=== PATIENT | male | born 1960 | race American Indian/Alaskan Native ===

== ENCOUNTER 2018-08-03 15:48 | Emergency (ER) | payer MEDICAID ==
[2018-08-03 15:54] VITALS: BP 124/86; PULSE 71; RESP 18; TEMP 98.3; O2SAT 99
--- NOTE | 2018-08-03 16:29 | C.PDOC ---
History Of Present Illness 58 y/o male presents to the ED complaining of left neck pain and left shoulder pain since yesterday. Patient states he lifted a heavy chair and developed pain shortly after. He denies any fall or blunt trauma, chest pain, SOB, numbness, tingling, or weakness in the arm. Patient did not take any pain medication prior to arrival. Time Seen by Provider: 08/03/18 15:58 Chief Complaint (Nursing): Upper Extremity Problem/Injury History Per: Patient History/Exam Limitations: no limitations Onset/Duration Of Symptoms: Days (2) Current Symptoms Are (Timing): Still Present Exacerbating Factor(s): Movement Past Medical History Reviewed: Historical Data, Nursing Documentation, Vital Signs Vital Signs: Last Vital Signs Temp 98.3 F 08/03/18 15:51 Pulse 71 08/03/18 15:51 Resp 18 08/03/18 15:51 BP 124/86 08/03/18 15:51 Pulse Ox 99 08/03/18 15:51 - Medical History PMH: Arthritis, Asthma Family History: States: Unknown Family Hx - Social History Hx Alcohol Use: No Hx Substance Use: No - Immunization History Hx Tetanus Toxoid Vaccination: No Hx Influenza Vaccination: Yes Hx Pneumococcal Vaccination: No Review Of Systems Constitutional: Negative for: Fever Cardiovascular: Negative for: Chest Pain, Palpitations Respiratory: Negative for: Cough, Shortness of Breath Musculoskeletal: Positive for: Neck Pain (left-sided), Shoulder Pain (left) Skin: Negative for: Rash, Lesions Neurological: Negative for: Weakness, Numbness, Incoordination Physical Exam - Physical Exam Appears: Non-toxic, No Acute Distress Skin: Warm, Dry Head: Atraumatic, Normacephalic Eye(s): bilateral: Normal Inspection Oral Mucosa: Moist Neck: Paracervical Tenderness (left-sided paracervical and trapezius tenderness, with (+) muscle spasm), Supple Chest: Symmetrical Respiratory: No Accessory Muscle Use, Other (NARD) Extremity: Normal ROM (w/ full ROM of left shoulder and arm, three knife trimmer strength 5/5 bilaterally), No Tenderness (to the upper arm or elbow), Capillary Refill (< 2 sec), No Deformity, No Swelling Pulses: Left Radial: Normal, Right Radial: Normal Neurological/Psych: Oriented x3, Normal Motor, Normal Sensation (Distal sensation intact to LUE) Gait: Steady ED Course And Treatment O2 Sat by Pulse Oximetry: 99 (RA) Pulse Ox Interpretation: Normal Medical Decision Making Medical Decision Making: Impression: Left trapezius/paracervical spasm Plan: Patient given 60 mg IM Toradol in the ED. Patient is resting comfortably in chair. Will d/c home with prescriptions for PO Flexeril and Toradol. Disposition Counseled Patient/Family Regarding: Diagnosis, Need For Followup - Disposition Referrals: [facility] [Outside] [facility] [Outside] Disposition: HOME/ ROUTINE Disposition Time: 16:28 Condition: IMPROVED Additional Instructions: MIKE DESOUZA, thank you for letting us take care of you today. Your provider was Jenniffer Guadalupe MD and you were treated for LT SHOULDER/NECK PAIN. The emergency medical care you received today was directed at your acute symptoms. If you were prescribed any medication, please fill it and take as directed. It may take several days for your symptoms to resolve. Return to the Emergency Department if your symptoms worsen, do not improve, or if you have any other problems. Please contact your doctor or call one of the physicians/clinics you have been referred to that are listed on the Patient Visit Information form that is included in your discharge packet. Bring any paperwork you were given at discharge with you along with any medications you are taking to your follow up visit. Our treatment cannot replace ongoing medical care by a primary care pr ovider outside of the emergency department. Thank you for allowing the [facility] team to be part of your care today. Prescriptions: Cyclobenzaprine [Cyclobenzaprine HCl] 10 mg PO TID PRN #20 tab PRN Reason: Muscle Spasm Ketorolac Tromethamine [Toradol] 10 mg PO Q6H PRN #20 tab PRN Reason: Pain, Moderate (4-7) Instructions: Muscle Strain (DC), Muscle Spasms (DC) Forms: [employer] (Georgian), General Discharge Instructions - POA Present On Arrival: None - Clinical Impression Clinical Impression: Muscle spasm of left shoulder, Strain of left trapezius muscle - Scribe Statement The provider has reviewed the documentation as recorded by the Mercedes Robledo Provider Attestation: All medical record entries made by the Michelleibfarhad were at my direction and personally dictated by me. I have reviewed the chart and agree that the record accurately reflects my personal performance of the history, physical exam, medical decision making, and the department course for this patient. I have also personally directed, reviewed, and agree with the discharge instructions and disposition.
== END 2018-08-03 16:39 | disposition home or self-care (01) ==
LOC: C.ER 15:48
DX: S16.1XXA Strain of muscle, fascia and tendon at neck level, initial encounter (principal); X50.0XXA Overexertion from strenuous movement or load, initial encounter; M62.838 Other muscle spasm
CPT/HCPCS: 96372; 99283; J1885